=== PATIENT | male | born 1970 | race Caucasian/White ===

== ENCOUNTER 2017-06-21 08:34 | Emergency (ER) | payer SELFPAY ==
[2017-06-21 08:47] VITALS: BP 135/71
--- NOTE | 2017-06-21 14:49 | UC ---
Skin Complaint HPI - HPI Summary HPI Summary: TICK EMBEDDED BASE OF NECK. ATTACHED CAN LESS THAN 24 HRS. - History of Current Complaint Chief Complaint: UCSkin Time Seen by Provider: 06/21/17 09:39 Stated Complaint: TICK Hx Obtained From: Patient Onset/Duration: Sudden Onset, Lasting Hours Timing: Constant Current Severity: None Pain Intensity: 0 Pain Scale Used: 0-10 Numeric Location: Discrete - BASE OF NECK Aggravating Factor(s): Nothing Alleviating Factor(s): Nothing Associated Signs & Symptoms: Positive: Negative Related History: Possible Reaction to: Insect - Allergy/Home Medications Allergies/Adverse Reactions: Allergies Allergy/AdvReac Type Severity Reaction Status Date / Time Cefpodoxime Allergy HIVES, Verified 06/21/17 08:48 ITCHING Ciprofloxacin [From Cipro] Allergy RED LINE Verified 06/21/17 08:48 DOWN ARM Morphine Allergy Unknown Verified 06/21/17 08:48 Reaction Details Penicillins Allergy Unknown Verified 06/21/17 08:48 Reaction Details Home Medications: Home Medications Escitalopram Oxalate [Lexapro 10 mg] 10 mg PO DAILY 06/21/17 [History Confirmed 06/21/17] Hydrochloraquin 200 mg EVERY OTHER DAY 06/21/17 [History] predniSONE TAB* [Deltasone TAB*] 10 mg PO DAILY 06/21/17 [History Confirmed 02/28] Review of Systems Constitutional: Negative Skin: Other - TICK BITE Respiratory: Negative Cardiovascular: Negative Gastrointestinal: Negative All Other Systems Reviewed And Are Negative: Yes PMH/Surg Hx/FS Hx/Imm Hx Previously Healthy: Yes - Surgical History Surgical History: Yes Surgery Procedure, Year, and Place: COLON RESECTION, 2011, [facility]; ABD HERNIA 08/2012, [facility]; DEVIATED SEPTUM X2 2003, 2005, [facility],. [place]ERN[place] MESH [place] [facility] [place] - Family History Known Family History: Positive: Hypertension Negative: Diabetes - Social History Alcohol Use: Weekly Alcohol Amount: 6 PER WEEK Substance Use Type: None Smoking Status (MU): Never Smoked Tobacco Have You Smoked in the Last Year: No - Immunization History Most Recent Influenza Vaccination: 2012 Most Recent Tetanus Shot: unknown Most Recent Pneumonia Vaccination: never Physical Exam Triage Information Reviewed: Yes Appearance: Well-Appearing, No Pain Distress, Well-Nourished Vital Signs: Initial Vital Signs Temp 97.6 F 06/21/17 08:42 Pulse 70 06/21/17 08:42 Resp 16 06/21/17 08:42 BP 135/71 06/21/17 08:42 Pulse Ox 100 06/21/17 08:42 Vital Signs Reviewed: Yes Eyes: Positive: Conjunctiva Clear ENT: Positive: Hearing grossly normal Neck: Positive: Supple Respiratory: Positive: No respiratory distress, No accessory muscle use Cardiovascular: Positive: Pulses Normal Abdomen Description: Positive: Soft Musculoskeletal: Positive: No Edema Neurological: Positive: Alert Psychological: Positive: Age Appropriate Behavior Skin: Positive: Other - TICK EMBEDDED BASE OF NECK Course/Dx - Course Course Of Treatment: TICK REMOVED IN ENTIRETY USING TICK TWISTER - Diagnoses Provider Diagnoses: TICK BITE Discharge - Discharge Plan Condition: Stable Disposition: HOME Patient Education Materials: Tick Bite (ED) Referrals: Leola Calderón PA [Primary Care Provider] - If Needed Additional Instructions: TICK BITE PROPHYLAXIS The Infectious Disease Society of [place] (IDSA) does not generally recommend antimicrobial prophylaxis for prevention of Lyme disease after a recognized tick bite. However, in areas that are highly endemic for Lyme disease, a single dose of doxycycline may be offered to adult patients (200 mg) who are not and to children older than 8 years of age (4 mg/kg up to a maximum dose of 200 mg) when all of the following circumstances exist: CRITERIA FOR RECEIVING PROPHYLACTIC TREATMENT FOR LYME DISEASE 1) TICK ATTACHED FOR AT LEAST 36 HRS 2) TICK IS AN ADULT OR [place] DEER TICK 3) YOU LIVE IN AN AREA WHERE LYME DISEASE IS PREVALENT (i.e., [place], [place], [place], [place], [place] , [place], [place], [place], [place], [place], [place], [place], [place], [place]) 4) YOU HAVE NO CONTRAINDICATION TO THE MEDICATION (DOXYCYCLINE) 5) PROPHYLAXIS IS BEGUN WITHIN 72 HRS OF TICK REMOVAL SINCE YOU DO NOT MEET ALL THESE CRITERIA THERE IS NO NEED TO GIVE YOU PROPHYLACTIC ANTIBIOTICS. YOUR CHANCES OF DEVELOPING LYME DISEASE ARE EXTREMELY SMALL. BE VIGILANT OF YOUR SYMPTOMS AND DON'T HESITATE TO GET SEEN AGAIN IF YOU DEVELOP UNEXPLAINED FEVER, HEADACHE, JOINT PAIN, BODY ACHES, RASH OR ANY OTHER CONCERNING SYMPTOMS. Antibiotic treatment following a tick bite is not recommended as a means to prevent anaplasmosis, babesiosis, ehrlichiosis, or [place] spotted fever. There is no evidence this practice is effective, and it may simply delay onset of disease. Instead, persons who experience a tick bite should be alert for symptoms suggestive of tickborne illness and consult a physician if fever, rash, or other symptoms of concern develop.
== END 2017-06-21 09:55 | disposition home or self-care (01) ==
LOC: UCEAST 08:34
DX: S10.96XA Insect bite of unspecified part of neck, initial encounter (principal); W57.XXXA Bitten or stung by nonvenomous insect and other nonvenomous arthropods, initial encounter; Y93.9 Activity, unspecified; Y92.9 Unspecified place or not applicable; Z88.1 Allergy status to other antibiotic agents; Z88.5 Allergy status to narcotic agent; Z88.0 Allergy status to penicillin
CPT/HCPCS: 99211; G0463

== ENCOUNTER 2018-06-29 13:18 | Emergency (ER) | payer BC ==
[2018-06-29 13:42] VITALS: BP 145/78
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
== END 2018-06-29 14:47 | disposition home or self-care (01) ==
LOC: UCCORT 13:18
DX: S20.211A Contusion of right front wall of thorax, initial encounter (principal); Y04.0XXA Assault by unarmed brawl or fight, initial encounter; Y92.9 Unspecified place or not applicable; Z88.0 Allergy status to penicillin; Z88.5 Allergy status to narcotic agent
CPT/HCPCS: 71046; 99212; G0463

== ENCOUNTER 2019-07-14 11:43 | Emergency (ER) | payer BC, OTHER ==
[2019-07-14 12:34] VITALS: BP 134/58
--- NOTE | 2019-07-14 13:19 | UC ---
UC General HPI - HPI Summary HPI Summary: Patient had a cold > 1 week ago. Now with worsening left sided nasal eye pain. Feels life a golf ball behind his eye. Has a history deviated septum and has had surgeries and now he states his left side it is clogged and he can't get anything out with blowing his nose. Is on chronic prednisone for a while for some autoimmune disorder. Has seen Dr. Martinez in the past. No cough. No fever. No Cp or SOB. No N/V/D. Meds: Reviewed - History of Current Complaint Chief Complaint: UCGeneralIllness Stated Complaint: SINUS COMPLAINT Time Seen by Provider: 07/14/19 12:57 Pain Intensity: 5 - Allergy/Home Medications Allergies/Adverse Reactions: Allergies Allergy/AdvReac Type Severity Reaction Status Date / Time cefpodoxime Allergy Hives Verified 07/14/19 12:35 ciprofloxacin Allergy See Comment Verified 07/14/19 12:35 morphine Allergy Unknown Verified 07/14/19 12:35 Reaction Details Penicillins Allergy Unknown Verified 07/14/19 12:35 Reaction Details PMH/Surg Hx/FS Hx/Imm Hx Previously Healthy: Yes GI/ History: Gastroesophageal Reflux - Surgical History Surgical History: Yes Surgery Procedure, Year, and Place: COLON RESECTION, 2011, [facility]; ABD HERNIA 08/2012, [facility]; DEVIATED SEPTUM X2 2003, 2005, [facility],. HERNIA MESH REPLACEMENT [place] [facility] [place]; - Family History Known Family History: Positive: Hypertension Negative: Diabetes - Social History Alcohol Use: Occasionally Alcohol Amount: 6 PER WEEK Substance Use Type: None Smoking Status (MU): Never Smoked Tobacco Have You Smoked in the Last Year: No - Immunization History Most Recent Influenza Vaccination: 2012 Most Recent Tetanus Shot: unknown Most Recent Pneumonia Vaccination: never Review of Systems All Other Systems Reviewed And Are Negative: Yes ENT: Positive: Sinus Congestion, Sinus Pain/Tenderness Is Patient Immunocompromised?: Yes Physical Exam Vital Signs: Initial Vital Signs Temp 98.5 F 07/14/19 12:29 Pulse 85 07/14/19 12:29 Resp 18 07/14/19 12:29 BP 134/58 07/14/19 12:29 Pulse Ox 98 07/14/19 12:29 Course/Dx - Course Course Of Treatment: This is a 49 yr old with left sided sinus/nasal congestion and pain Sinusitis Recommend starting Doxycycline as prescribed Resume Nasal saline rinses Recommend follow up with ENT/Dr. Martinez If symptoms persist or worsen, recommend follow up with PCP or return to urgent care - Diagnoses Provider Diagnosis: Sinusitis Discharge ED - Sign-Out/Discharge Documenting (check all that apply): Patient Departure All imaging exams completed and their final reports reviewed: No Studies - Discharge Plan Condition: Good Disposition: HOME Prescriptions: DOXYcycline CAP(*) [DOXYcycline 100MG CAP(*)] 100 mg PO BID #20 cap Patient Education Materials: Sinusitis (ED) Referrals: Leola Calderón PA [Primary Care Provider] - Additional Instructions: Recommend starting Doxycycline as prescribed Resume Nasal saline rinses Recommend follow up with ENT/Dr. Martinez If symptoms persist or worsen, recommend follow up with PCP or return to urgent care - Billing Disposition and Condition Condition: GOOD Disposition: Home
== END 2019-07-14 13:19 | disposition home or self-care (01) ==
LOC: UCCORT 11:43
DX: J32.9 Chronic sinusitis, unspecified (principal); D89.89 Other specified disorders involving the immune mechanism, not elsewhere classified; Z88.0 Allergy status to penicillin; Z88.1 Allergy status to other antibiotic agents; Z88.5 Allergy status to narcotic agent; Z79.52 Long term (current) use of systemic steroids
CPT/HCPCS: 99212; G0463

== ENCOUNTER 2019-08-08 13:04 | Emergency (ER) | payer SELFPAY ==
[2019-08-08] MEDS ORDERED: Ibuprofen TAB* 600 MG PO ONE (13:50)
[2019-08-08 14:17] VITALS: BP 140/79
--- NOTE | 2019-08-08 14:28 | UC ---
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 - History of Current Complaint Chief Complaint: UCUpperExtremity Stated Complaint: SHOULDER INJURY Time Seen by Provider: 08/08/19 13:50 Hx Obtained From: Patient Onset/Duration: Sudden Onset, Lasting Hours - 3 Timing: Constant Severity Initially: Moderate Severity Currently: Moderate Pain Intensity: 7 Pain Scale Used: 0-10 Numeric Character: Aching, Throbbing Aggravating Factor(s): Movement Alleviating Factor(s): Rest, Ice Associated Signs And Symptoms: Positive: Negative Related History: Dominant Hand Right - Allergies/Home Medications Allergies/Adverse Reactions: Allergies Allergy/AdvReac Type Severity Reaction Status Date / Time cefpodoxime Allergy Hives Verified 08/08/19 13:52 ciprofloxacin Allergy See Comment Verified 08/08/19 13:52 morphine Allergy Unknown Verified 08/08/19 13:52 Reaction Details Penicillins Allergy Unknown Verified 08/08/19 13:52 Reaction Details PMH/Surg Hx/FS Hx/Imm Hx Previously Healthy: No GI/ History: Gastroesophageal Reflux Psychological History: Anxiety - Surgical History Surgical History: Yes Surgery Procedure, Year, and Place: COLON RESECTION, 2011, [facility]; ABD HERNIA 08/2012, [facility]; DEVIATED SEPTUM X2 2003, 2005, [facility],. HERNIA MESH REPLACEMENT APR 2014 [facility] [place]; - Family History Known Family History: Positive: Hypertension Negative: Diabetes - Social History Occupation: Employed Full-time Lives: With Family Alcohol Use: Weekly Alcohol Amount: 6 PER WEEK Substance Use Type: None Smoking Status (MU): Never Smoked Tobacco Have You Smoked in the Last Year: No - Immunization History Most Recent Influenza Vaccination: 2012 Most Recent Tetanus Shot: unknown Most Recent Pneumonia Vaccination: never Review of Systems All Other Systems Reviewed And Are Negative: Yes Constitutional: Positive: Negative Skin: Positive: Negative Eyes: Positive: Negative ENT: Positive: Negative Respiratory: Positive: Negative Cardiovascular: Positive: Negative Gastrointestinal: Positive: Negative Genitourinary: Positive: Negative Motor: Positive: Decreased ROM - right shoulder due to pain Neurovascular: Positive: Negative Musculoskeletal: Positive: Arthralgia - right shoulder Neurological: Positive: Negative Psychological: Positive: Negative Is Patient Immunocompromised?: No Physical Exam Triage Information Reviewed: Yes Appearance: Well-Appearing, Well-Nourished, Pain Distress Vital Signs: Initial Vital Signs Temp 98.9 F 08/08/19 13:54 Pulse 82 08/08/19 13:54 Resp 16 08/08/19 13:54 BP 140/79 08/08/19 13:54 Pulse Ox 100 08/08/19 13:54 Vital Signs Reviewed: Yes Eye Exam: Normal Eyes: Positive: Conjunctiva Clear ENT Exam: Normal ENT: Positive: Normal ENT inspection, Hearing grossly normal. Negative: Nasal congestion, Trismus, Muffled voice, Hoarse voice Dental Exam: Normal Neck exam: Normal Neck: Positive: Supple, Nontender, No Lymphadenopathy Respiratory Exam: Normal Respiratory: Positive: Chest non-tender, Lungs clear, Normal breath sounds, No respiratory distress, No accessory muscle use Cardiovascular Exam: Normal Cardiovascular: Positive: RRR, No Murmur, Pulses Normal, Brisk Capillary Refill Musculoskeletal Exam: Other Musculoskeletal: Positive: No Edema, Strength Limited @ - right arm Neurological Exam: Normal Neurological: Positive: Alert, Muscle Tone Normal Psychological Exam: Normal Skin Exam: Normal Diagnostics - Radiology No standard instances Radiology Interpretation Completed By: Radiologist - no acute osseus injury Shoulder Course/Dx - Course Course Of Treatment: sling, rest ice, ibuprofen, hydrocodone, follow bp with pcp and shoulder with orthopedic md - Differential Dx/Diagnosis Provider Diagnosis: Hypertension, Right shoulder injury Discharge ED - Sign-Out/Discharge Documenting (check all that apply): Patient Departure All imaging exams completed and their final reports reviewed: Yes - Discharge Plan Condition: Stable Disposition: HOME Prescriptions: Hydrocodone/Acetaminophen [Hydrocodone-Acetamin 5-325 mg] 1 each PO Q6H PRN #10 tablet MDD 4 PRN Reason: pain Patient Education Materials: Ibuprofen (By mouth), Shoulder Sprain (ED), Hypertension (ED), Ice Pack Application (ED), Shoulder Pain (ED) Referrals: Leola Calderón PA [Primary Care Provider] - (1-4 weeks for bp recheck) Jeffery Donis MD [Medical Doctor] - 2 Days - Billing Disposition and Condition Condition: STABLE Disposition: Home
== END 2019-08-08 15:03 | disposition home or self-care (01) ==
LOC: UCEAST 13:04
DX: S49.91XA Unspecified injury of right shoulder and upper arm, initial encounter (principal); I10 Essential (primary) hypertension; X50.9XXA Other and unspecified overexertion or strenuous movements or postures, initial encounter; Y92.9 Unspecified place or not applicable; Z88.1 Allergy status to other antibiotic agents; Z88.5 Allergy status to narcotic agent; Z88.0 Allergy status to penicillin
CPT/HCPCS: 99202; A9270-GY; G0463

== ENCOUNTER 2020-10-25 22:51 | Observation (INO) ==
[2020-10-25] MEDS ORDERED: Lactated Ringers 1000 ml BAG IV.FLUID IV ONE (23:26)
[2020-10-26 00:11] LABS: ABS Eosinophils 0.1 10^3/ul (0-0.6); ABS Lymphocytes 0.3 10^3/ul (1.0-4.8); ABS Monocytes 0.3 10^3/ul (0-0.8); ABS Neutrophils 8.1 10^3/ul (1.5-7.7); Eosinophil % 0.6 %; Hematocrit 42 % (42-52); Hemoglobin 14.5 g/dL (14.0-18.0); Lymphocyte % 3.2 %; Mean Corpuscular HGB Conc 35 g/dL (31-36); Mean Corpuscular Hemoglobin 29 pg (27-31); Mean Corpuscular Volume 84 fL (80-94); Mean Platelet Volume 8.9 fL (7.4-10.4); Platelet Count 158 10^3/uL (150-450); Red Blood Count 4.93 10^6 /uL (4.18-5.48); Red Cell Distribution Width 14 % (10-15); White Blood Count 8.8 10^3/uL (3.5-10.8)
[2020-10-26 00:25] LABS: ALT 65 U/L (7-52); AST 54 U/L (13-39); Albumin 4.2 g/dL (3.2-5.2); Albumin/Globulin Ratio 1.3 (1-3); Alkaline Phosphatase 41 U/L (34-104); Anion Gap 12 mmol/L (2-11); Blood Urea Nitrogen 10 mg/dL (6-24); C Reactive Protein 35.14 mg/L (<8.01); CO2 Carbon Dioxide 20 mmol/L (22-32); Calcium 9.3 mg/dL (8.6-10.3); Chloride 102 mmol/L (101-111); EGFR African American 96.5 (>60); EGFR Non-African American 79.8 (>60); Globulin 3.3 g/dL (2-4); Glucose 138 mg/dL (70-100); Potassium 3.5 mmol/L (3.5-5.0); Sodium 134 mmol/L (135-145); Total Protein 7.5 g/dL (6.4-8.9)
[2020-10-26 00:26] LABS: Activated Partial Thrombo Time 25.7 seconds (26.0-38.0); INR 1.1 (0.82-1.09)
[2020-10-26 00:40] LABS: Influenza A Molecular Negative (Negative); Influenza B Molecular Negative (Negative)
[2020-10-26 01:11] LABS: Troponin I 0.31 ng/mL (<0.03)
[2020-10-26] MEDS ORDERED: Piperacillin/Tazobac ADVAN 3.375 GM in NS 0.9% 100 ml BAG 100 ML IV ONE (03:19)
[2020-10-26] MEDS ORDERED: Lactated Ringers 1000 ml BAG 1,000 ML IV ONE (03:21)
[2020-10-26 03:54] LABS: ALT 69 U/L (7-52); AST 64 U/L (13-39); Albumin 3.8 g/dL (3.2-5.2); Albumin/Globulin Ratio 1.3 (1-3); Alkaline Phosphatase 36 U/L (34-104); Anion Gap 8 mmol/L (2-11); BUN/Creatinine Ratio 9.3 (8-20); Blood Urea Nitrogen 9 mg/dL (6-24); CO2 Carbon Dioxide 23 mmol/L (22-32); Calcium 8.9 mg/dL (8.6-10.3); Chloride 103 mmol/L (101-111); EGFR Non-African American 82.6 (>60); Globulin 2.9 g/dL (2-4); Glucose 153 mg/dL (70-100); Potassium 3.7 mmol/L (3.5-5.0); Sodium 134 mmol/L (135-145); Total Protein 6.7 g/dL (6.4-8.9)
[2020-10-26 03:59] LABS: Troponin I 0.28 ng/mL (<0.03)
[2020-10-26] MEDS ORDERED: Zosyn per Pharmacy NOTE FOLLOW UP SCH (04:00)
[2020-10-26 04:53] LABS: Erythrocyte Sed Rate 15 mm/Hr (0-14)
[2020-10-26 06:24] LABS: ABS Lymphocytes 0.3 10^3/ul (1.0-4.8); ABS Monocytes 0.4 10^3/ul (0-0.8); ABS Neutrophils 6.9 10^3/ul (1.5-7.7); Eosinophil % 0.5 %; Hematocrit 39 % (42-52); Hemoglobin 13.6 g/dL (14.0-18.0); Lymphocyte % 3.9 %; Mean Corpuscular HGB Conc 35 g/dL (31-36); Mean Corpuscular Hemoglobin 29 pg (27-31); Mean Corpuscular Volume 84 fL (80-94); Mean Platelet Volume 8.9 fL (7.4-10.4); Platelet Count 148 10^3/uL (150-450); Red Blood Count 4.67 10^6 /uL (4.18-5.48); Red Cell Distribution Width 14 % (10-15); White Blood Count 7.6 10^3/uL (3.5-10.8)
[2020-10-26 06:36] LABS: Urine Appearance Clear; Urine Bilirubin Negative (Negative); Urine Blood Negative (Negative); Urine Color Straw; Urine Glucose Negative (Negative); Urine Ketones Negative (Negative); Urine Nitrite Negative (Negative); Urine Protein Negative (Negative); Urine Specific Gravity 1.008 (1.002-1.030); Urine Urobilinogen Negative (Negative)
[2020-10-26] MEDS ORDERED: Iohexol 350 (CONTRAST) 500 ML MDV IV SCH (09:08)
[2020-10-26] MEDS: MESALAMINE 1.2 GM PO SCH (10:10)
[2020-10-26] MEDS: ZOSYN 3.375 GM Q8H per EXTENDED INFUSION IV SCH ×2 (10:10→17:22)
[2020-10-26] MEDS: Enoxaparin 40 MG/0.4 ML SYR SUBCUT SCH (10:10)
[2020-10-26 15:36] LABS: Lipase 19 U/L (11.0-82.0)
[2020-10-27] MEDS: ZOSYN 3.375 GM Q8H per EXTENDED INFUSION IV SCH ×2 (01:55→11:44)
[2020-10-27 06:06] LABS: Hematocrit 38 % (42-52); Hemoglobin 12.9 g/dL (14.0-18.0); Mean Corpuscular HGB Conc 34 g/dL (31-36); Mean Corpuscular Hemoglobin 29 pg (27-31); Mean Corpuscular Volume 86 fL (80-94); Mean Platelet Volume 9.6 fL (7.4-10.4); Platelet Count 144 10^3/uL (150-450); Red Blood Count 4.44 10^6 /uL (4.18-5.48); Red Cell Distribution Width 14 % (10-15); White Blood Count 5.2 10^3/uL (3.5-10.8)
[2020-10-27 06:25] LABS: BUN/Creatinine Ratio 9.4 (8-20); Calcium 8.6 mg/dL (8.6-10.3); EGFR African American 101.2 (>60); EGFR Non-African American 83.6 (>60); Potassium 3.5 mmol/L (3.5-5.0)
[2020-10-27 06:44] LABS: Polychromasia 1+
[2020-10-27 06:45] LABS: ABS Eosinophils 0.3 10^3/ul (0-0.6); ABS Lymphocytes 1.3 10^3/ul (1.0-4.8); ABS Monocytes 0.9 10^3/ul (0-0.8); ABS Neutrophils 2.8 10^3/ul (1.5-7.7); Lymphocyte % 24.4 %; Nucleated Red Blood Cells % 0.1
[2020-10-27 07:57] LABS: Albumin 3.5 g/dL (3.2-5.2); Albumin/Globulin Ratio 1.3 (1-3); Globulin 2.8 g/dL (2-4); Indirect Bilirubin 0.6 mg/dL (0.3-1.0); Total Bilirubin 0.7 mg/dL (0.2-1.0); Total Protein 6.3 g/dL (6.4-8.9)
[2020-10-27] MEDS: Enoxaparin 40 MG/0.4 ML SYR SUBCUT SCH (10:32)
[2020-10-27] MEDS: MESALAMINE 1.2 GM PO SCH (11:10)
[2020-10-27 11:39] VITALS: BP 124/71
[2020-10-27 12:08] LABS: Hepatitis B Surface Antigen Nonreactive (Nonreactive)
[2020-10-27 12:13] LABS: Hepatitis A Ab IgM Negative (Negative); Hepatitis B Core IgM Nonreactive (Nonreactive)
[2020-10-27 12:25] LABS: Hepatitis C Antibody Negative (Negative)
== END 2020-10-27 14:10 | disposition home or self-care (01) | DRG 249 ==
LOC: ED 22:51 → EDHOLD 10-26 03:14 → INTOOBSV 10-26 03:14 → MED 10-26 07:31
PROVIDERS: ADMIT Internal Medicine; ATTEND Internal Medicine